=== PATIENT | male | born 1950 | race Caucasian/White ===

== ENCOUNTER 2018-06-17 02:29 | Inpatient (IN) ==
--- NOTE | 2018-06-10 08:22 | EKG Report ---
Test Performed on : 06/10/2018 08:17:06 AM Test Reason : PAT Blood Pressure : / mmHG Vent. Rate : 068 BPM Atrial Rate : 068 BPM P-R Int : 180 ms QRS Dur : 122 ms QT Int : 428 ms P-R-T Axes : 060 -25 051 degrees QTc Int : 455 ms Normal sinus rhythm. Left ventricular hypertrophy with QRS widening Cannot rule out Septal infarct , age undetermined Abnormal ECG No previous ECGs available Unconfirmed Result
[2018-06-10 08:41] LABS: URINE SOURCE CLEAN CATCH
[2018-06-10 09:19] LABS: BASO# 0.03 X1000 (0.0-0.2); BASO% 0.5 % (0.0-0.8); EOS% 1.8 % (0.0-10.0); HEMATOCRIT 47.7 % (42.0-52.0); HEMOGLOBIN 15.4 g/dL (14.0-18.0); INR 0.89; LYMPH# 2.12 X1000 (1.2-3.4); LYMPH% 38.2 % (20.5-51.1); MCH 31.3 PG (27-31); MCHC 32.3 g/dL (33-37); MONO# 0.61 X1000 (0.11-0.59); MPV 9.7 FL (7.4-10.4); NEUT# 2.69 X1000 (1.4-6.5); NEUT% 48.5 % (42.2-75.2); PLT 205 X1000 (130-400); PROTIME 12.7 Seconds (11.0-16.0); RBC 4.92 XMIL (4.7-6.1); RDW 13.9 % (11.5-14.5); WBC 5.55 X1000 (4.8-10.8)
[2018-06-10 09:20] LABS: BILIRUBIN URINE NEGATIVE (NEGATIVE); BLOOD URINE NEGATIVE (NEGATIVE); COLOR YELLOW; GLUCOSE URINE NEGATIVE (NEGATIVE); KETONE URINE NEGATIVE (NEGATIVE); LEUKOCYTES URINE NEGATIVE (NEGATIVE); NITRITE URINE NEGATIVE (NEGATIVE); PH URINE 6.5; PROTEIN URINE NEGATIVE (NEGATIVE); SP GRAVITY URINE 1.021; TURBIDITY URINE CLEAR (CLEAR); UROBILINOGEN URINE 2 mg/dL (NORMAL)
[2018-06-10 09:23] LABS: UR EPITHELIAL CELLS <10 /HPF (<10); URINE BACTERIA NEGATIVE /HPF; URINE RBC <10 /HPF (<10); URINE WBC <10 /HPF (<10)
[2018-06-10 09:24] LABS: AGAP 12; BUN 19 mg/dL (8-22); CALCIUM 9.4 mg/dL (8.8-10.2); CHLORIDE 101 mmol/L (98-107); COSMO 285; CREATININE 1.1 mg/dL (0.7-1.2); ESTIMATED GFR > 60; GLUCOSE 66 mg/dL (70-104); SODIUM 143 mmol/L (136-145); TCO2 30 mmol/L (25-35)
[2018-06-17] MEDS ORDERED: ROBAXIN PO PRN (06:41)
[2018-06-17] MEDS ORDERED: MOTRIN PO PRN (06:41)
[2018-06-17] MEDS ORDERED: PEPCID ONE (10:57)
[2018-06-17] MEDS ORDERED: COLACE ONE (10:57)
[2018-06-17] MEDS ORDERED: REGLAN ONE (10:57)
[2018-06-17] MEDS ORDERED: LYRICA ONE ×2 (10:58→11:28)
[2018-06-17] MEDS ORDERED: KEFZOL 2 GM/D5W 2 GM/50 ML IVPB ONE (10:58)
[2018-06-17] MEDS ORDERED: DIPRIVAN 1% ONE (11:15)
[2018-06-17] MEDS ORDERED: ROBINUL ONE ×2 (11:15→15:00)
[2018-06-17] MEDS ORDERED: QUELICIN (DOSE) ONE (11:15)
[2018-06-17] MEDS ORDERED: XYLOCAINE-MPF 2% ONE ×2 (11:15→15:46)
[2018-06-17] MEDS ORDERED: DURAMORPH ONE (12:56)
[2018-06-17] MEDS ORDERED: EXPAREL 1.3% ONE (12:57)
[2018-06-17] MEDS ORDERED: SODIUM CHLORIDE 0.9% 50 ML ONE (12:57)
[2018-06-17] MEDS ORDERED: NEOSPORIN G.U. IRRIGANT ONE (12:57)
[2018-06-17] MEDS ORDERED: CYKLOKAPRON 1,000 MG/NS 1,000 MG/100 ML IVPB ONE (12:57)
[2018-06-17] MEDS ORDERED: TORADOL ONE (12:57)
[2018-06-17] MEDS ORDERED: MARCAINE 0.25% PF ONE (12:57)
[2018-06-17] MEDS ORDERED: ZEMURON ONE (13:23)
[2018-06-17] MEDS ORDERED: OFIRMEV 1000 MG/ISOTONIC SOLN 1,000 MG/100 ML BOTTLE ONE (13:29)
[2018-06-17] MEDS ORDERED: ZOFRAN ONE (13:29)
[2018-06-17] MEDS ORDERED: DECADRON ONE (13:29)
[2018-06-17] MEDS ORDERED: FENTANYL ONE (13:37)
[2018-06-17] MEDS ORDERED: LABETALOL (DOSE) ONE (13:47)
[2018-06-17] MEDS ORDERED: MORPHINE ONE (13:53)
[2018-06-17 14:09] LABS: URINE SOURCE CATH
[2018-06-17 14:25] LABS: BILIRUBIN URINE NEGATIVE (NEGATIVE); BLOOD URINE NEGATIVE (NEGATIVE); COLOR YELLOW; GLUCOSE URINE NEGATIVE (NEGATIVE); KETONE URINE NEGATIVE (NEGATIVE); LEUKOCYTES URINE NEGATIVE (NEGATIVE); NITRITE URINE NEGATIVE (NEGATIVE); PH URINE 7.5; PROTEIN URINE NEGATIVE (NEGATIVE); SP GRAVITY URINE 1.006; TURBIDITY URINE CLEAR (CLEAR); UROBILINOGEN URINE NORMAL (NORMAL)
[2018-06-17 14:26] LABS: UR EPITHELIAL CELLS <10 /HPF (<10); URINE BACTERIA NEGATIVE /HPF; URINE RBC <10 /HPF (<10); URINE WBC <10 /HPF (<10)
[2018-06-17] MEDS ORDERED: VANCOMYCIN ONE (14:36)
[2018-06-17] MEDS ORDERED: NEOSTIGMINE ONE (15:00)
[2018-06-17] MEDS: DILAUDID ONE ×2 (16:16→16:19)
[2018-06-17] MEDS ORDERED: NS 1,000 ML ONE (16:19)
--- NOTE | 2018-06-17 16:32 | Diag Imaging Result Doc PS360 ---
EXAM: SHOULDER-RIGHT INDICATION: R total shoulder arthroplasty revision TECHNIQUE: One view COMPARISON: None. FINDINGS: There has been a recent right shoulder arthroplasty revision. The newly placed arthroplasty hardware is in the expected position. There is no evidence of periprosthetic fracture. There is a small amount of postsurgical soft tissue gas around the shoulder. IMPRESSION: Satisfactory postoperative right shoulder. Electronically signed by Tobi Stevenson 06/17/2018 4:29 PM
--- NOTE | 2018-06-17 16:33 | OPERATIVE NOTE ---
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 PROCEDURE: Revision arthroplasty right shoulder with a size 14 cemented Delta extend humeral was stem with a 52 x 26 CTA head. SURGEON: Juan Sanchez MD. LEAF STRIPPER: JANE Everett SECOND VENETIAN BLIND MAKER: Reji Lainez RN. ANESTHESIA: General. IV FLUIDS: 1400 mL lactated Ringer's. ESTIMATED BLOOD LOSS: Blood loss was 250 mm Hg. COMPLICATIONS: None. INDICATION: The patient is a pleasant 67-year-old male who is status post right total shoulder arthroplasty in 2005. The patient did well initially. He has had some increased discomfort and the last couple of years. X-rays revealed evidence of lucency of the glenoid and superior migration of the humeral head consistent with chronic rotator cuff tear. Given patient's findings, recommendation to proceed with revision arthroplasty was offered. Risks and benefits of surgery were explained, including the risks of anesthesia, , bleeding, infection, failure to relieve pain, postop stiffness, nerve injury blood clots, and other imponderables. All questions answered. Patient family wished proceed with surgery. DETAILS OF THE OPERATION: The patient was taken to the operating room and placed supine on the operating table. Once adequate anesthesia was obtained, the patient was placed in semi-Cardona beach-chair position. The right shoulder was subsequently prepped and draped in usual sterile fashion. A standard deltopectoral incision was made through the previous surgical incision. Hemostasis was obtained using electrocautery. The deltopectoral interval was then developed. Retractors were then placed. The patient had significant scarring. Elevation of the subscapularis tendon was then performed and retracted. The humeral head was then dislocated anteriorly. The humeral head was then removed. A rongeur was then used circumferentially as well a small osteotome in the proximal portion of the stem. After this was performed it was able to be removed without difficulty. Attention turned to the glenoid where retractor was then placed. The glenoid had significant loosening and was removed without difficulty as well as some cement. A rongeur was then used on the glenoid. Patient had significant the defect at the glenoid with significant cavity with very poor bone stock. A guide pin was then placed in the central portion in an attempt and it was determined to be a cyst significant glenoid bone loss and was not amenable to proceed with metaglene. Therefore we did after confirming that there would not be it with the inadequate bone stock for the metaglene decision was to proceed with bone grafting with cancellous bone chips. The wound was copiously irrigated and [*]was performed. 15 mL of crushed cancellous bone chips was then impacted in the defect hand and throughout the glenoid. Again had significant cavitary lesion inferiorly as well superiorly. After the bone stock and then placed a tamp was then used to smoothly contour this. There appeared to be good stable fixation and good filling of the defect. After this had been performed, attention turned to the humerus. It was copiously irrigated with antibiotic irrigation. The vancomycin was mixed with cement on the back table. The cement was then impacted and a size 14 delta extend cemented stem was then placed and was in approximately 20 degrees of retroversion. After cement hardened, peripheral cement was removed small rongeur. A 52 x 26 bipolar head was impacted after copious irrigation. The shoulder was then reduced, carried through range of motion. Good range of motion. There appeared to have adequate stability. The wound was copiously irrigated once again. Exparel was placed in the soft tissue appeared #1 Vicryl was then used to repair some of the very poor quality tissue of the subscapularis tendon and a small portion of it in the mid section was then reapproximated to the lateral soft tissue and was carried through range of motion and appeared to be stable. Remaining portion of the Exparel was placed in deep soft tissue, as well as subcutaneous tissue. The wound was copiously irrigated once again with antibiotic pulsatile lavage. The 2-0 Vicryl was then used to repair the subcutaneous tissue, followed by running 2-0 Prolene. Benzoin, Steri- Strips strips were applied. Adaptic sterile 4 x 4's, ABD pad, and tape were applied to the right shoulder. This was followed by shoulder immobilizer. Patient tolerated well with no complications. Transferred to recovery in stable condition. cc: Juan Sanchez MD
[2018-06-17] MEDS ORDERED: MORPHINE IV PRN ×3 (17:45)
[2018-06-17] MEDS ORDERED: ZOFRAN PO PRN (17:45)
[2018-06-17] MEDS ORDERED: OXY IR PO PRN (17:45)
[2018-06-17] MEDS: NEURONTIN PO SCH ×2 (17:56→20:33)
[2018-06-17] MEDS: EFFEXOR XR PO SCH (17:56)
[2018-06-17] MEDS: MAXZIDE-25 PO SCH (17:57)
[2018-06-17] MEDS: KEFZOL 2 GM/D5W 2 GM/50 ML IVPB IV SCH (18:45)
[2018-06-17] MEDS: NS 1,000 ML IV SCH ×2 (18:46→18:48)
[2018-06-17] MEDS ORDERED: CYKLOKAPRON 1,000 MG in NS 100 ML IV ONE (19:30)
[2018-06-17] MEDS: COLACE PO SCH (20:32)
[2018-06-17] MEDS: TYLENOL PO SCH (20:32)
[2018-06-17] MEDS: PERIDEX MT SCH (20:32)
[2018-06-17] MEDS: CYTOTEC PO SCH (20:33)
[2018-06-17] MEDS: OXY IR PO PRN (20:34)
[2018-06-17] MEDS ORDERED: MEVACOR PO SCH (21:00)
[2018-06-18] MEDS: KEFZOL 2 GM/D5W 2 GM/50 ML IVPB IV SCH (03:09)
[2018-06-18] MEDS: OXY IR PO PRN ×2 (03:10→08:05)
[2018-06-18] MEDS: TYLENOL PO SCH ×2 (03:11→08:03)
[2018-06-18 03:58] LABS: URINE SOURCE CATH
[2018-06-18 04:02] LABS: BILIRUBIN URINE NEGATIVE (NEGATIVE); BLOOD URINE TRACE (NEGATIVE); COLOR YELLOW; GLUCOSE URINE NEGATIVE (NEGATIVE); KETONE URINE NEGATIVE (NEGATIVE); LEUKOCYTES URINE NEGATIVE (NEGATIVE); NITRITE URINE NEGATIVE (NEGATIVE); PH URINE 6.5; PROTEIN URINE TRACE mg/dL (NEGATIVE); SP GRAVITY URINE 1.015; TURBIDITY URINE CLEAR (CLEAR); UROBILINOGEN URINE NORMAL (NORMAL)
[2018-06-18 04:04] LABS: UR EPITHELIAL CELLS <10 /HPF (<10); URINE BACTERIA NEGATIVE /HPF; URINE RBC <10 /HPF (<10); URINE WBC <10 /HPF (<10)
[2018-06-18 06:05] LABS: HEMOGLOBIN 11.9 g/dL (14.0-18.0)
[2018-06-18 06:22] LABS: AGAP 8; BUN 13 mg/dL (8-22); CALCIUM 8.1 mg/dL (8.8-10.2); CHLORIDE 106 mmol/L (98-107); COSMO 285; ESTIMATED GFR > 60; GLUCOSE 133 mg/dL (70-104); POTASSIUM 4.1 mmol/L (3.5-5.1); SODIUM 142 mmol/L (136-145); TCO2 28 mmol/L (25-35)
--- NOTE | 2018-06-18 06:31 | PROGRESS NOTE ---
DATE: 06/18/2018 SUBJECTIVE: The patient is a pleasant 67-year-old male who is 1 day status post revision arthroplasty right shoulder with conversion to a hemiarthroplasty and bone grafting of his glenoid. He is currently resting comfortably. OBJECTIVE: On physical exam, his wound looks good. There are no signs or symptoms of infection. He is able to flex his fingers. Good appliance assembler strength. LABORATORY DATA: His hemoglobin is 11.9, hematocrit is 37.0. IMPRESSION: Postoperative day #1 status post revision arthroplasty revision arthroplasty with conversion to a hemiarthroplasty bone graft in the glenoid. PLAN: At this point, we will plan on discharging home. We will have the patient follow up in 10 or 12 days. cc: Juan Sanchez MD
[2018-06-18 07:19] VITALS: BP 100/59
[2018-06-18] MEDS: EFFEXOR XR PO SCH (08:03)
[2018-06-18] MEDS: NEURONTIN PO SCH (08:03)
[2018-06-18] MEDS: MAXZIDE-25 PO SCH (08:03)
[2018-06-18] MEDS: COLACE PO SCH (08:04)
[2018-06-18] MEDS: CYTOTEC PO SCH (08:04)
[2018-06-18] MEDS: PERIDEX MT SCH (08:04)
== END 2018-06-18 10:46 | disposition home health service (06) | DRG 483 ==
LOC: SURHOLD 02:29 → 4N 14:07
PROVIDERS: ADMIT Orthopaedic Surgery Adult Reconstructive Orthopaedic Surgery; ATTEND Orthopaedic Surgery Adult Reconstructive Orthopaedic Surgery
CPT/HCPCS: 73030; 80048; 81001; 85014; 85018; 85025; 85610; 85730; 87070; 87075; 87205; 93005; 93010; 97162; 97530; A9270; C1762; C9290; J0131; J0330; J0690; J1100; J1170; J1885; J2270; J2274; J2275; J2405; J3010; J3370; J7030; Q9974; S0020